=== PATIENT | male | born 1990 | race Caucasian/White ===

== ENCOUNTER 2021-09-11 17:28 | Emergency (ER) | payer BC ==
[~2021-09-11] VITALS: Ht 175.3 cm; Wt 75.0 kg
[2021-09-11 17:44] VITALS: BP 106/75
[2021-09-11] MEDS ORDERED: metroNIDAZOLE-Flagyl 500mg/NS 100 ML IV SCH (20:00)
[2021-09-11] MEDS ORDERED: ciprofloxacin lact 400MG/200ML 200 ML IV SCH (20:00)
== END 2021-09-11 19:35 | disposition home or self-care (01) ==
LOC: ER 17:29
DX: S62.614A Displaced fracture of proximal phalanx of right ring finger, initial encounter for closed fracture (principal); M79.644 Pain in right finger(s); F12.90 Cannabis use, unspecified, uncomplicated; Z60.2 Problems related to living alone; X58.XXXA Exposure to other specified factors, initial encounter; Y93.89 Activity, other specified; Y92.89 Other specified places as the place of occurrence of the external cause; Y99.8 Other external cause status
CPT/HCPCS: 29125; 73140; 99283